=== PATIENT | female | born 1960 | race Caucasian/White ===

== ENCOUNTER 2020-01-08 10:40 | Emergency (ER) | payer OTHER ==
[~2020-01-08] VITALS: Ht 149.9 cm; Wt 70.5 kg
[2020-01-08] MEDS ORDERED: ACETAMINOPHEN 500 MG TABLET PO ONE (11:45)
[2020-01-08 13:42] VITALS: BP 155/90
== END 2020-01-08 13:44 | disposition home or self-care (01) ==
LOC: EMS 10:55
DX: S62.644A Nondisplaced fracture of proximal phalanx of right ring finger, initial encounter for closed fracture (principal); I10 Essential (primary) hypertension; W22.8XXA Striking against or struck by other objects, initial encounter; Y93.89 Activity, other specified; Y92.89 Other specified places as the place of occurrence of the external cause; Y99.8 Other external cause status